=== PATIENT | male | born 1950 | race Caucasian/White ===

== ENCOUNTER 2023-08-28 17:11 | Emergency (ER) | payer MEDICARE, OTHER ==
[2023-08-28] MEDS ORDERED: Sodium Chloride 0.9% 2.5 ML Syringe FLUSH PRN (17:41)
[2023-08-28] MEDS ORDERED: Sodium Chloride 0.9% 10 ML Syringe FLUSH PRN (17:41)
[2023-08-28] MEDS ORDERED: Sodium Chloride 0.9% 20 ML SDV IV PRN (17:41)
[2023-08-28] MEDS ORDERED: Lactated Ringers 1,000 ML IV SCH (17:45)
[2023-08-28 17:50] LABS: INR 2.23 (0.86-1.11)
[2023-08-28] MEDS ORDERED: Sugammadex Sodium 200 MG/2 ML VIAL ONE (19:54)
[2023-08-28] MEDS ORDERED: Propofol 200 MG/20 ML SDV ONE (19:54)
[2023-08-28] MEDS ORDERED: Lidocaine 2% 5 ML SDV ONE (19:54)
[2023-08-28] MEDS ORDERED: Ondansetron 4 MG/2 ML SDV ONE (19:54)
[2023-08-28] MEDS ORDERED: Rocuronium Bromide 50 MG/5 ML Syringe ONE (19:54)
[2023-08-28] MEDS ORDERED: fentaNYL 100 MCG/2 ML SDV ONE (19:55)
[2023-08-28] MEDS ORDERED: Pantoprazole 40 MG Tab.CR PO ONE (20:21)
[2023-08-28 21:41] VITALS: BP 158/80; PULSE 70
== END 2023-08-28 18:22 | disposition critical access hospital (66) ==
LOC: MW.ED 17:11 → MW.MS 18:05 → MW.SDS 18:05 → MW.MS 21:13 → MW.SDS 21:13
DX: T18.128A Food in esophagus causing other injury, initial encounter (principal); W44.F3XA Food entering into or through a natural orifice, initial encounter; Z53.8 Procedure and treatment not carried out for other reasons
CPT/HCPCS: 36415; 85610; A9270; J7120; 99203; J2405; J2704; J3010; J3490